=== PATIENT | male | born 1990 | race Caucasian/White ===

== ENCOUNTER 2016-05-29 22:13 | Observation (INO) ==
[2016-05-29 23:07] LABS: BASO% 0.9 % (0.0-0.8); HEMOGLOBIN 15.7 g/dL (14.0-18.0); MANUAL DIFF NEEDED? NO
[2016-05-29 23:08] LABS: BILIRUBIN URINE NEGATIVE (NEGATIVE); BLOOD URINE NEGATIVE (NEGATIVE); COLOR YELLOW; GLUCOSE URINE NEGATIVE (NEGATIVE); LEUKOCYTES URINE NEGATIVE (NEGATIVE); NITRITE URINE NEGATIVE (NEGATIVE); PH URINE 5.5; PROTEIN URINE NEGATIVE (NEGATIVE); TURBIDITY URINE CLEAR (CLEAR); URINE CULTURE NEEDED? NO; URINE MICRO REVIEW NEEDED? NO; URINE SOURCE CLEAN CATCH; UROBILINOGEN URINE NORMAL (NORMAL)
[2016-05-29 23:09] LABS: UR EPITHELIAL CELLS <10 /HPF (<10); URINE BACTERIA NEGATIVE /HPF; URINE RBC <10 /HPF (<10); URINE WBC <10 /HPF (<10)
[2016-05-29 23:14] LABS: EOS# 0.36 X1000 (0.0-0.7); EOS% 3.1 % (0.0-10.0); HEMATOCRIT 45.9 % (42.0-52.0); IMM GRAN# 0.14 X1000 (0.0-0.04); IMM GRAN% 1.2 % (0.0-0.5); LYMPH# 3.71 X1000 (1.2-3.4); LYMPH% 32.1 % (20.5-51.1); MCH 29.7 PG (27-31); MCHC 34.2 g/dL (33-37); MCV 86.9 FL (81-99); MONO# 1.07 X1000 (0.11-0.59); MONO% 9.2 % (1.7-9.3); MPV 9.8 FL (7.4-10.4); NEUT% 53.5 % (42.2-75.2); PLT 309 X1000 (130-400); RBC 5.28 XMIL (4.7-6.1)
[2016-05-29 23:15] LABS: SP GRAVITY URINE 1.022
[2016-05-29 23:28] LABS: AGAP 13; ALBUMIN 4.1 g/dL (3.5-5.0); ALKALINE PHOSPHATASE 78 U/L (32-122); AMYLASE 61 U/L (20-200); BUN 17 mg/dL (8-22); CALCIUM 8.7 mg/dL (8.8-10.2); CHLORIDE 103 mmol/L (98-107); COSMO 286; GOT 15 U/L (10-34); GPT 18 U/L (10-44); LIPASE 34 U/L (13-60); POTASSIUM 4.2 mmol/L (3.5-5.1); SODIUM 143 mmol/L (136-145); TCO2 27 mmol/L (25-35); TOTAL BILIRUBIN 0.21 mg/dL (0.20-1.00); TOTAL PROTEIN 8.2 g/dL (6.3-8.3)
[2016-05-30] MEDS ORDERED: ZOFRAN ODT PO ONE (00:45)
[2016-05-30] MEDS ORDERED: NS 1,000 ML IV SCH (05:19)
[2016-05-30] MEDS: SODIUM CHLORIDE 0.9% INJ SCH ×2 (05:55→17:01)
[2016-05-30] MEDS: PROTONIX IV SCH ×2 (05:55→17:01)
--- NOTE | 2016-05-30 06:59 | HISTORY AND PHYSICAL ---
CHIEF COMPLAINT: Abdominal pain. HISTORY OF PRESENT ILLNESS: This is a 25-year-old male with no past medical history other than cochlear implant surgery; however, over the last 2 weeks, has had abdominal pain that was sharp, worse with some movement, greatest at the periumbilical area. Did not radiate. He also had 3 spells of emesis and noted there was blood in each of the emesis, greatest today , so he came into the emergency room. He has been seen at an urgent care. Was given a Medrol Dosepak and [place]. The pain was not affected at all by meals. He did note some postural dizziness. He denied melena or hematochezia. No weight gain or weight loss. CT of the abdomen was completed in the emergency room which was a grossly normal examination. Laboratory data was also obtained which was again grossly normal. The patient will be admitted for further evaluation and treatment. PAST MEDICAL HISTORY: None. PREVIOUS SURGICAL HISTORY: Cochlear implants. FAMILY HISTORY: Diabetes mellitus and hypertension in first-degree relatives. SOCIAL HISTORY: Lives at home with family. Denies tobacco, alcohol or illicit drug use or abuse. ALLERGIES: No known drug allergies. HOME MEDICATIONS: Recently prescribed [place], Flexeril and a Medrol Dosepak; otherwise, no home medications. REVIEW OF SYSTEMS: Fourteen point review of systems conducted with the patient. Pertinent positives listed above in the HPI. All other systems were reviewed and found to be negative. PHYSICAL EXAMINATION: VITAL SIGNS: Temperature 98.1 degrees, pulse 80, respirations 18, blood pressure 123/84, oxygen saturation 99% on room air. GENERAL: Pleasant 25-year-old male lying in the ER stretcher. No acute distress. Answers all questions appropriately. HEENT: Head is atraumatic, normocephalic. Pupils equal, reactive to light. Extraocular eye movement intact. Sclerae anicteric. Conjunctivae is pink. Oral mucosa is moist. NECK: Supple. No JVD. No thyromegaly. Trachea is midline. No cervical lymphadenopathy. CARDIAC: Regular rhythm. S1-S2 appreciated. No murmurs, gallops, rubs. LUNGS: Clear to auscultation bilaterally. No rhonchi, wheezes or rales. ABDOMEN: Soft, nondistended. Diffusely tender to palpation. No rebound tenderness. Bowel sounds hypoactive all 4 quadrants. No pulsatile mass. No organomegaly. EXTREMITIES: No clubbing, cyanosis, or edema. Two plus pedal pulses bilaterally. GENITOURINARY: Patient voids, otherwise deferred. NEUROLOGICAL: Alert and oriented x3. Cranial nerves 2-12 are grossly intact. DIAGNOSTIC DATA: CT of the abdomen: No acute processes noted per radiology report; otherwise, normal examination. LABORATORY DATA: WBC 11.54, hemoglobin 15.7, hematocrit 45.9, platelet count 309,000. Sodium 143, potassium 4.2, chloride 103, carbon dioxide 27, BUN 17, creatinine 1, glucose 91. Urine unremarkable. ASSESSMENT/PLAN: 1. Questionable upper gastrointestinal bleed. The patient subjectively reported hematemesis. Will consult Gastroenterology to evaluate. Protonix 40 mg IV q.12 hours. We will also hold patient NPO. 2. Abdominal pain. The patient did not complain of pain in the emergency room. We will not order pain medicines at this time. 3. Mild leukocytosis, likely secondary to Medrol Dosepak. 4. Further recommendations per patient's clinical course. Dictated by GOYO Ochoa for Catie Conner MD cc: GOYO Ochoa MD [facility] HOSPITALChele
--- NOTE | 2016-05-30 09:36 | Diag Imaging Result Document ---
PROCEDURE NAME: CT ABD/PELVIS W/ IV CONT ONLY - 05/30/2016 CT ABDOMEN AND PELVIS WITH INTRAVENOUS CONTRAST: FINDINGS: Normal liver, spleen, pancreas, gallbladder, adrenal glands, and kidneys. There is a tiny left renal cyst. No hydronephrosis. Normal aorta. No bowel obstruction. No inflammation about the cecum. No abscess. No free air. The urinary bladder is only mildly distended. The prostate is not enlarged. There are small scattered mesenteric lymph nodes. IMPRESSION: 1. No bowel obstruction. No abscess. 2. No hydronephrosis. 3. Small scattered mesenteric nodes. These do not seem prominent enough to represent adenitis. A preliminary report was given at 2:35 a.m.
[2016-05-30] MEDS: CARAFATE LIQUID PO SCH ×4 (11:31→21:59)
--- NOTE | 2016-05-30 11:59 | PROGRESS NOTE ---
DATE: 05/30/2016 SUBJECTIVE: Patient notes he has not had any further bleeding since he has been in the hospital. Does note that he has had abdominal pain off and on for the past 2 weeks. He actually saw his primary care physician and was scheduled to have an EGD next week but after having bloody emesis yesterday and increased abdominal pain he presented to the emergency department. PHYSICAL: Temp 98 degrees, pulse 74, respiratory rate 18, BP 103/64, sat 97% on room air.General: Patient is awake, alert, oriented. Very pleasant to talk with young man who is in no current respiratory distress. He does have very poor hearing for which he has a cochlear implant. He has a friend in the room that also assists with sign language. HEENT: Normocephalic. Neck: Supple. CV: Regular rate. Chest: Relatively clear. Abdomen: Soft. He is mildly diffusely tender. No masses. No hepatosplenomegaly. Extremities: Moves all extremities. Neurologic: No focal changes. Skin: Warm and dry. No rashes. DIAGNOSTIC DATA: CBC and CMP is essentially normal. ASSESSMENT: 1. Acute gastritis with upper with an upper GI bleed. Appears to have improved. 2. Abdominal pain secondary to his acute gastritis. 3. Mild leukocytosis with no other etiology which appeared likely also the cause of his acute gastritis. PLAN: Patient apparently does not take any ibuprofen, aspirin, Aleve or other NSAIDs at home. He had been in his usual state of health as noted, until he started having abdominal pain. This continued off and on for the past 2 weeks. Certainly Medrol Dosepak could have contributed but would not have been the only cause. Currently his symptoms have improved. We will advance his diet. If his symptoms worsen certainly may need to have an EGD at that point. Further orders as needed. Hopefully home in 1-2 days. cc: Gurpreet Arnold MD
[2016-05-30] MEDS: NORCO-5 PO PRN ×2 (17:00→21:59)
[2016-05-30] MEDS: BENTYL PO PRN (17:01)
[2016-05-30] MEDS: CULTURELLE PO SCH (18:31)
[2016-05-30] MEDS ORDERED: TORADOL IV ONE (22:27)
[2016-05-31] MEDS: CARAFATE LIQUID PO SCH ×4 (03:25→19:56)
[2016-05-31 05:50] LABS: MANUAL DIFF NEEDED? NO
[2016-05-31 05:56] LABS: BASO% 0.5 % (0.0-0.8); EOS# 0.37 X1000 (0.0-0.7); EOS% 3.9 % (0.0-10.0); HEMATOCRIT 45.7 % (42.0-52.0); HEMOGLOBIN 15.7 g/dL (14.0-18.0); IMM GRAN# 0.12 X1000 (0.0-0.04); IMM GRAN% 1.3 % (0.0-0.5); LYMPH# 2.78 X1000 (1.2-3.4); LYMPH% 29.1 % (20.5-51.1); MCH 29.5 PG (27-31); MCHC 34.4 g/dL (33-37); MCV 85.9 FL (81-99); MONO# 1.06 X1000 (0.11-0.59); MONO% 11.1 % (1.7-9.3); MPV 9.8 FL (7.4-10.4); NEUT% 54.1 % (42.2-75.2); PLT 266 X1000 (130-400); RBC 5.32 XMIL (4.7-6.1)
[2016-05-31] MEDS: SODIUM CHLORIDE 0.9% INJ SCH ×2 (05:56→17:26)
[2016-05-31] MEDS: PROTONIX IV SCH ×2 (05:56→17:26)
[2016-05-31 06:18] LABS: AGAP 11; BUN 11 mg/dL (8-22); CHLORIDE 102 mmol/L (98-107); COSMO 278; POTASSIUM 4.2 mmol/L (3.5-5.1); SODIUM 140 mmol/L (136-145); TCO2 27 mmol/L (25-35)
--- NOTE | 2016-05-31 09:22 | CONSULTATION ---
DATE OF CONSULTATION: 05/30/2016 GASTROENTEROLOGY CONSULTATION: DICTATING PHYSICIANS: Dr. Sam Delacruz PRIMARY CARE DOCTOR: Rhonda Lazcano. REASON FOR CONSULTATION: Hematemesis and rectal bleeding. HISTORY OF PRESENT ILLNESS: Mr. Gomez is a 25-year-old male who has a known history of deafness status post cochlear implant surgery who was admitted on 05/29/2016 with symptoms of abdominal pain going on over the last 3 weeks, nausea, vomiting for 1 week, and noticing fresh blood and vomitus the last 3 days. The patient was seen in the urgent care for the similar symptoms and was given a Medrol Dosepak and Dunre[place]. According to him, this made his symptoms worse, and he also complains of change in bowel habits along with diarrhea, and has been noticing some fresh blood in the stools. He does notice dehydration and some postural dizziness. He had a CT scan done on admission, which showed normal liver, spleen, pancreas, gallbladder, adrenal glands, and kidneys. There is a tiny left renal cyst. No hydronephrosis. Normal aorta. There are some small scattered mesenteric lymph nodes noted. No bowel obstruction. No abscesses noted. Since being in the hospital the patient has no more vomiting. His last vomitus was yesterday and he has pictures on his phone which shows specks of bright red blood noted in the commode. He had 2 BMs today. According to him he is noticing some fresh blood in the stools which has never happened before. He still complains of stool being runny. PAST MEDICAL HISTORY: Hearing loss. PAST SURGERY HISTORY: Cochlear implants. FAMILY HISTORY: Diabetes mellitus and hypertension in first-degree relatives. SOCIAL HISTORY: He lives at home with his family. He is . His partner was present at bedside. Denies history of tobacco, alcohol, illicit drug abuse. ALLERGIES: No known drug allergies. MEDICATIONS AT HOME: Recently prescribed [place]re[place], Flexeril, Medrol Dosepak. SYSTEM REVIEW: Denies any current fevers, rigors, or chills, chest pain, shortness of breath, dyspnea. Denies any genitourinary complaints. He has a history of hearing loss and is status post cochlear implants. He denies any history of reflux disease or vomiting blood prior to this episode. He denies any history of sick contacts or recent travel. 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 MEDICATIONS IN THE HOSPITAL: Include Zofran, Protonix IV b.i.d., Carafate 1 g q.6 hours. DIET: He is currently on a full liquid diet. PHYSICAL EXAMINATION: Vital Signs: Temperature 98.7 degrees, pulse rate of 86 , respiratory rate of 17, blood pressure 115/60, O2 saturation 98% on room air. Body weight 221 pounds, 9 ounces. BMI of 32 kg/m2. General Appearance: Moderately nourished, lying in bed, in no acute distress. HEENT: No pallor. No icterus. Pupils equal, react to light. Neck: Supple. Chest: Decreased. Heart: Regular rhythm. No murmurs. Abdomen: Discomfort in the belly. There is no rebound, no guarding. Bowel sounds present. No hepatosplenomegaly. Extremities: No cyanosis, clubbing, edema. Neuro: Alert, awake, oriented. DIAGNOSTIC DATA: Labs: Hemoglobin and hematocrit is 15.7 and 45.9, white count of 11.5 and 7, platelet count of 309,000, MCV 86.9. Sodium 140, potassium 4.2, chloride 103, bicarb 27, anion gap 13, BUN of 17, creatinine of 1, glucose of 91, calcium is 8.7, total bilirubin is 0.21, AST 15, ALT is 18, alkaline phosphatase 78, total protein 8.2, albumin of 4.1, amylase 61, lipase of 34. Urinalysis is clear. Imaging in the CT scan as described in HPI. IMPRESSION: 1. Abdominal pain along with nausea, vomiting, vomiting blood. 2. Rectal bleeding. 3. Diarrhea. 4. Some prominent mesenteric lymph nodes noted on CT scan. Otherwise negative CT scan. 5. Recently prescription of steroid Medrol Dosepak and Dunreith and Flexeril for urgent care for similar symptoms. 6. Hearing loss status post cochlear implants. RECOMMENDATIONS: 1. We will schedule patient for EGD and colonoscopy on Wednesday. If the patient is feeling better over the weekend then he can be discharged and he can get that done as an outpatient. In the meanwhile, continue PPIs b.i.d. and Carafate 1 g q.6 hours. We will also check stool studies. 2. Will start on Culturelle 1 capsule once daily. 3. The patient will follow gastroesophageal reflux lifestyle changes. Avoid excessive tea, coffee, soda, tomatoes, onions, spicy foods. 4. We will continue full liquid diet and advance as tolerated. 5. Above plan of care discussed with the patient and his partner at bedside. All questions answered. cc: MD Sam Mason MD MTDD
[2016-05-31] MEDS: CULTURELLE PO SCH (09:24)
[2016-05-31] MEDS: NORCO-5 PO PRN ×2 (11:23→23:54)
[2016-05-31] MEDS ORDERED: GOLYTELY PO ONE (14:00)
--- NOTE | 2016-05-31 14:27 | PROGRESS NOTE ---
DATE: 05/31/2016 SUBJECTIVE: The patient notes that each time he attempts to eat the continues to hurt in his left lower quadrant. He does not have pain in the right lower quadrant or in the upper quadrants. Denies any fevers, chills. Denies any dysuria, frequency. Denies any current nausea. Denies any hematochezia or melena. OBJECTIVE: Vital Signs: Temperature 97, pulse 85, respiratory rate 18, BP 117/65, satting 98% on room air. General: Patient is awake, alert, oriented. He is currently in no respiratory distress. Pleasant to talk with. Speech is regular. Memory is intact. Neck: Supple. CV: Regular rate. Chest: Relatively clear. Abdomen: Soft. Tender in the left lower quadrant. Extremities: Moves all extremities. Neurologic: No changes. DIAGNOSTIC DATA: CBC and CMP essentially normal. ASSESSMENT: 1. Left lower quadrant abdominal pain. 2. Mild leukocytosis appears resolved. 3. Questionable upper gastrointestinal bleed. Appears to have resolved. PLAN: We will continue to follow along with Dr. Delacruz. Uncertain etiology of the patient's pain. The CT was essentially negative with the exception of some mild prominent mesenteric lymph nodes. I certainly feel as though he is going to have EGD and colonoscopy at this point as he was not improved, today. cc: Gurpreet Arnold MD
[2016-05-31] MEDS: ZOFRAN IV PRN ×2 (19:56→23:55)
[2016-05-31] MEDS: BENTYL PO PRN (23:33)
[2016-06-01] MEDS: CARAFATE LIQUID PO SCH ×4 (03:49→20:07)
[2016-06-01] MEDS: SODIUM CHLORIDE 0.9% INJ SCH ×2 (05:31→18:05)
[2016-06-01] MEDS: PROTONIX IV SCH ×2 (05:31→18:05)
--- NOTE | 2016-06-01 06:14 | PROGRESS NOTE ---
DATE: 05/31/2016 ATTENDING PHYSICIAN: Dr. Arnold. SUBJECTIVE: The patient is currently resting in bed. He complains of abdominal pain after eating and the pain is localized in the periumbilical region and left lower quadrant and left upper quadrant. He also complains of intermittent blood in the stools. He had 2 BMs today. He denies any fevers, rigors, or chills. He was able to eat 100% of his meals a day. OBJECTIVE: Vital signs: Temperature 97.8 degrees, pulse rate of 69, respiratory rate of 16, blood pressure 112/67, saturating 98% on room air. General appearance: Moderately built, moderately nourished, lying in bed, in no acute. HEENT: No pallor. No icterus. Pupils equal, react to light. Neck: Supple. Abdomen: Soft. Discomfort in the periumbilical region, left upper quadrant, and left lower quadrant. No rebound. No guarding. Extremities: No cyanosis, clubbing, and edema. Neurologic: He is alert, awake, oriented. He has a history of bilateral deafness and has a history of cochlear implants. LABS: Hemoglobin and hematocrit are 15.7 and 45.7, white count of 9.5, platelet count of 266,000, MCV of 85.9. Sodium 140, potassium 4.2, chloride 102, bicarb 27, anion gap of 11, BUN of 11, creatinine 1.1, glucose of 87, calcium is 9. Liver enzymes were normal yesterday. Amylase and lipase were also normal at 61 and 34 yesterday. Urinalysis unremarkable. IMPRESSION AND PLAN: 1. Abdominal pain in the periumbilical region and left upper quadrant and left lower quadrant with nausea, vomiting, vomiting blood. Although his hematocrit is stable, suspect erosive gastritis vs viral syndrome. We will schedule him for an EGD and colonoscopy tomorrow. 2. Rectal bleeding, intermittent. Maybe anorectal pathology. Will evaluate with a colonoscopy as described above. 3. Some prominent mesenteric lymph nodes noted on the CT scan but otherwise negative CT scan. It could be secondary to viral gastroenteritis. 4. History of hearing loss status post cochlear implants. Per the primary care team. 5. We will continue patient on PPIs, GI prophylaxis, and recent history of hematemesis. The patient will continue on gastroesophageal reflux lifestyle changes. Will keep him on Culturelle 1 capsule p.o. b.i.d. for 6 weeks and on discharge he may need to be on PPIs once daily for 8-12 weeks. The above plan of care was discussed with the patient and all questions were answered. cc: MD Gurpreet Rodriguez MD Kimberly M. Young MTDD
[2016-06-01] MEDS: CULTURELLE PO SCH (10:59)
[2016-06-01] MEDS ORDERED: DIPRIVAN 1% ONE (11:08)
[2016-06-01] MEDS ORDERED: EXTENSION SET 32 IN 4522 ONE (11:55)
[2016-06-01] MEDS ORDERED: NS 1,000 ML ONE (11:55)
[2016-06-01] MEDS ORDERED: XYLOCAINE-MPF 2% ONE (11:55)
[2016-06-01] MEDS ORDERED: ANESTHESIA PB SET 88 IN 5742 ONE (11:55)
[2016-06-01] MEDS: MIRALAX PO SCH ×2 (15:35→20:07)
--- NOTE | 2016-06-01 16:49 | PROGRESS NOTE ---
DATE: 06/01/2016 SUBJECTIVE: The patient is resting comfortably in bed. He completed the colonoscopy prep this morning. OBJECTIVE: Vital Signs: Temperature 98.5 degrees, blood pressure 130/78, heart rate 98, respirations 16, and O2 saturations 97% on room air. General: This is a young male, lying in bed, in no acute distress. HEENT: Head, normocephalic and atraumatic. Heart: S1, S2. Normal. Regular rate and rhythm. Lungs: Clear to auscultation bilaterally. No wheezes, no rales, no rhonchi. Abdomen: Positive bowel sounds. Soft, nontender, nondistended. Extremities: No edema. No cyanosis. No calf tenderness. Neurologic: The patient is alert and oriented x3. LABORATORY DATA: None. ASSESSMENT AND PLAN: 1. Abdominal pain. The patient is scheduled for an esophagogastroduodenoscopy and colonoscopy today. We will follow the results. 2. Rectal bleeding. Again, the patient is scheduled for a colonoscopy today. 3. Hearing loss, status post cochlear implants, aware. 4. Gastrointestinal prophylaxis. Continue on intravenous Protonix. cc: Ambreen Wild MD
--- NOTE | 2016-06-01 20:57 | OPERATIVE NOTE ---
PROCEDURE DATE: 06/01/2016 REQUESTING PHYSICIAN: Marcus Saldaña MD PROCEDURE: 1. Esophagogastroduodenoscopy with gastric biopsy. 2. Colonoscopy. PREOPERATIVE DIAGNOSES: 1. Abdominal pain periumbilical region, left upper quadrant, left lower quadrant going on for the last 3 weeks. 2. Nausea, vomiting, and vomiting blood once at home. 3. Normal CBC. 4. Mild rectal bleeding. POSTOPERATIVE DIAGNOSES: 1. Mild esophagitis distal esophagus LA grade 1. 2. Z-line was at 40 cm. 3. Evidence of erosive gastritis of the antrum status post biopsy. 4. Normal fundus, cardia, incisura. 5. Mild duodenitis in the duodenal bulb. 6. Normal 2nd portion duodenum. 7. Stool throughout the colon, poor prep. 8. High impaction with solid stool impacted in the descending colon. The scope was able to go around that area and able to lavage the colon. Evidence of minor internal hemorrhoids. 9. No evidence of active bleeding fresh or old blood in the entire colonoscopy. Brown stool throughout the colon. ESTIMATED BLOOD LOSS: Minimal. COMPLICATIONS: None. ANESTHESIA: Monitored anesthesia care per Anesthesiologist. SPECIMENS: Random gastric biopsy. DESCRIPTION OF PROCEDURE: After informed consent, the patient and his family explained the risks, benefits, indications, alternatives to procedure, the patient was prepared for an EGD and colonoscopy. The patient was brought to the OR. He was turned in the left position, a bite block was placed in the patient's mouth after adequate monitored anesthesia care. The upper scope was introduced over the oral vestibule, all the way to the second portion of duodenum. The esophagus showed evidence of erythema, erosions in the distal esophagus, suggesting reflux esophagitis. The Z-line was at 40 cm. The scope was advanced in the stomach evidence of mild erosions in the antrum suggesting antral gastritis. This was biopsied randomly in the stomach, rule out H. pylori. Retroflexion revealed normal fundus, cardia, incisura. The duodenal bulb showed evidence of mild erythema, erosions suggesting erosive duodenitis. The 2nd portion of duodenum appeared normal. The air was aspirated as the scope withdrawn. The patient was then turned around. Rectal exam was performed, which revealed normal rectal tone. No masses were felt. No blood on the examining finger. The colonoscope was introduced through the anal verge, traversed all the way to the cecum. There was evidence of normal colon mucosa in the rectosigmoid area. In the descending colon, we encountered a high impaction with stool impacted in that area. We were able to wriggle the scope around the solid stool area all the way into the cecum. Cecum was identified with the IC valve. The entire colon from the cecum all the way to the descending colon was full of solid stool and thick liquid stool. So we lavaged the colon. The lesions in this area could be missed because of the poor prep. Retroflexion in the rectum revealed internal hemorrhoids. I did not visualize any evidence fresh or old blood in entire colonoscopy. The air was aspirated as the scope withdrawn. The patient tolerated the procedure and is currently monitored in the OR in stable condition. I discussed the findings with the patient's family and all questions were answered. RECOMMENDATIONS: 1. The patient will be on Prilosec once daily for the next 3 months and wean down to Zantac 150 mg p.o. b.i.d. 2. Patient will be on gastroesophageal reflux life changes. Avoid excessive tea , coffee, soda, tomatoes, onions, spicy foods. 3. Patient will be on MiraLAX 34 g p.o. b.i.d. and hold for more than 3 bowel movements in 24 hours. 4. We will start patient on full liquid diet today and advance as tolerated. I believe the patient's symptoms are all secondary due to impaction, so he will benefit from a high fiber diet. The patient will call my office in 2 weeks of discharge to review the gastric biopsy and he will need a repeat colonoscopy with 2 day prep if his symptoms persist. The above findings discussed with the patient and family and all questions were answered. cc: MD Marcus Rodriguez MD [facility]
[2016-06-02] MEDS: CARAFATE LIQUID PO SCH ×2 (02:23→10:38)
[2016-06-02] MEDS: PROTONIX IV SCH (05:08)
[2016-06-02] MEDS: SODIUM CHLORIDE 0.9% INJ SCH (05:08)
[2016-06-02 05:41] LABS: HEMATOCRIT 46.3 % (42.0-52.0); MCH 29.6 PG (27-31); MCHC 34.6 g/dL (33-37); MCV 85.7 FL (81-99); MPV 9.7 FL (7.4-10.4); RBC 5.4 XMIL (4.7-6.1)
[2016-06-02 05:53] LABS: AGAP 11; BUN 12 mg/dL (8-22); CALCIUM 9.1 mg/dL (8.8-10.2); CHLORIDE 102 mmol/L (98-107); COSMO 281; POTASSIUM 4.3 mmol/L (3.5-5.1); SODIUM 141 mmol/L (136-145); TCO2 28 mmol/L (25-35)
[2016-06-02 05:55] VITALS: BP 116/75
[2016-06-02] MEDS: MIRALAX PO SCH (10:38)
[2016-06-02] MEDS: CULTURELLE PO SCH (10:38)
--- NOTE | 2016-06-10 15:01 | PROVIDER DOCUMENTATION ---
This chart was entered by Juan Jose Wagner Scribe, acting as scribe for Yaya Live MD. HPI-Abdominal Pain/GI Problem - General Chief Complaint: Abdominal Pain Stated Complaint: VOMITING BLOOD, BLEEDING FROM RECTUM Time Seen by Provider: 05/30/16 00:37 Source: patient, family Allergies/Adverse Reactions: Patient Allergies Allergy/AdvReac Type Severity Reaction Status Date / Time No Known Allergies Allergy Verified 05/29/16 23:46 Home Medications: Home Medication List Medication Instructions Recorded Confirmed Last Taken Type Cyclobenzaprine HCl 10 mg PO TID 05/29/16 05/29/16 Unknown History Hydrocodone/Acetaminophen 1 tab PO TID PRN 05/29/16 05/29/16 Unknown History [Hydrocodon-Acetaminophen 5-325] Lactobacillus Rhamnosus GG 1 each PO DAILY #30 capsule 06/02/16 Unknown Rx [Culturelle] Omeprazole [Prilosec] 40 mg PO DAILY #30 capsule. 06/02/16 Unknown Rx Polyethylene Glycol 3350 [Miralax] 17 gm PO BID #1 powd.pack 06/02/16 Unknown Rx - History of Present Illness-ABD Nature of Presenting Problems: Pt is a 25 yom who presents to ER with CC of hematochezia and hematemesis. Pt reports that he has had N/V/D x2 weeks, but he started to notice blood in his stool and emesis after getting home from work today. Pt also reports dysuria, F/ chills. Abdominal Pain Onset Location: reports: RLQ Pain Radiation: reports: no radiation Quality of Pain: reports: aching, cramping Severity in ED: reports: moderate Onset/Duration: reports: just prior to arrival Timing: reports: still present Associated Symptoms: reports: diarrhea (hematochezia), fever/chills, genitourinary problems (dysuria), nausea, vomiting (hematemesis). denies: anxiety, arm pain, back/neck pain, chest pain, constipation, cough, diaphoresis , dizziness, EENT symptoms, fatigue, headaches, heartburn, joint pain, loss of appetite, malaise, muscle aches, sinus congestion/drainage, rash, seizure, shortness of breath, sensory/motor loss, pain with inspiration, swelling/mass in abdomen, syncope, weakness, trouble walking Last BM: this evening Dark Stools Present?: reports: bright red blood Rectal Bleeding: reports: bleeding without stool, blood mixed with stool Rectal Pain: reports: none Emesis Description: reports: red blood Bruising or Bleeding Gums?: No Similar Symptoms Previously?: No Recently seen or treated by another doctor?: No Review of Systems - Adult - REVIEW OF SYSTEMS - ADULT Constitutional: reports: chills, fever. denies: fatique, night sweats, weight gain, weight loss Eyes: reports: no symptoms reported Ears, Nose, Mouth & Throat: reports: no symptoms reported Cardiovascular: reports: no symptoms reported Respiratory: reports: no symptoms reported Gastrointestinal: reports: abdominal pain, hematemesis, diarrhea, nausea, rectal bleeding, vomiting. denies: constipation, difficulty swallowing, frequent heartburn, poor appetite Genitourinary: reports: dysuria. denies: discharge, frequency, flank pain, frequent UTI's, hematuria, hesitency, incontinence, urinary retention, urgency Musculoskeletal: reports: no symptoms reported Integumentary: reports: no symptoms reported Neurological: reports: no symptoms reported Psychiatric: reports: no symptoms reported Endocrine: reports: no symptoms reported Hematologic/Lymphatic: reports: no symptoms reported Allergic/Immunologic: reports: no symptoms reported All Other Systems: Reviewed and Negative Past History - Adult - PAST MEDICAL HISTORY-ADULT Review of Records: reports: Nursing Assessment Review, Medications Reviewed - IMMUNIZATION STATUS Childhood Immunizations: See Nurse Assessment Flu Vaccine: See Nurse Assessment Physical Exam-General - PHYSICAL EXAM-ADULT Initial Vital Signs Reviewed: Yes - CONSTITUTIONAL General Appearance: appears well, alert, mild distress. negative: no apparent distress - HEAD, EARS, NOSE, MOUTH & THROAT HENMT: normocephalic/atraumatic, moist mucous membranes, normal ENT inspection, TMs normal, pharynx normal. negative: pharyngeal erythema, tonsillar exudate, TM abnormal, TM obscurred by cerumen - NECK Neck: non-tender, full range of motion, supple, normal inspection. negative: C- spine tenderness, limited range of motion, lymphadenopathy - RESPIRATORY Respiratory: chest non-tender, lungs clear, normal breath sounds, no pleuratic chest pain, no respiratory distress, no accessory muscle use. negative: respiratory distress, decreased breath sounds, accessory muscle use, crackles, rales, rhonchi, stridor, wheezing - CARDIOVASCULAR Cardiovascular: normal peripheral pulses, regular rate, rhythm. negative: bradycardia, tachycardia, irregularly irregular - GASTROINTESTINAL (ABDOMEN) Abdominal Exam: normal bowel sounds, soft, tenderness (RLQ). negative: non tender, distended, guarding - MUSCULOSKELETAL Extremity: normal range of motion, non-tender, normal gait, normal inspection, no pedal edema, no calf tenderness, normal capillary refill. negative: deformity, erythema, inflammation, joint effusion, swelling, tenderness - SKIN Integumentary: normal color, normal turgor, warm/dry. negative: abrasion(s), diaphoresis, ecchymosis, erythema, laceration(s), swelling, tenderness, warm - NEUROLOGIC Neurologic: pmo manager II-XII nml as tested, grossly normal, no motor/sensory deficits . negative: facial droop, focal weakness, motor weakness, sensory deficit - PSYCHIATRIC Psych/Mental Status: normal mood/affect, normal thought content, normal thought process, oriented x 3 Progress - PLAN OF CARE/RESULTS Progress/Plan/Lab Results: Vital Signs - 8 hr 05/29/16 22:46 Temperature 98.1 F Pulse Rate 95 H Respiratory Rate 20 Blood Pressure 129/85 O2 Sat by Pulse Oximetry 99 Laboratory Results - last 24 hr 05/29/16 05/29/16 05/29/16 22:50 22:50 22:50 WBC 11.57 H RBC 5.28 Hgb 15.7 Hct 45.9 MCV 86.9 MCH 29.7 MCHC 34.2 RDW Std Deviation 12.7 Plt Count 309 MPV 9.8 Immature Gran % (Auto) 1.2 H Neut % (Auto) 53.5 Lymph % (Auto) 32.1 [place] % (Auto) 9.2 Eos % (Auto) 3.1 Baso % (Auto) 0.9 H Immature Gran # (Auto) 0.14 H Neut # (Auto) 6.19 Lymph # (Auto) 3.71 H [place] # (Auto) 1.07 H Eos # (Auto) 0.36 Baso # (Auto) 0.10 Sodium 143 Potassium 4.2 Chloride 103 Carbon Dioxide 27 Anion Gap 13 BUN 17 Creatinine 1.0 Estimated GFR/1.73 m2 > 60 BUN/Creatinine Ratio 17 Glucose 91 Calculated Osmolality 286 Calcium 8.7 L Total Bilirubin 0.21 AST 15 ALT 18 Alkaline Phosphatase 78 Total Protein 8.2 Albumin 4.1 Globulin 4.1 Albumin/Globulin Ratio 1.0 Amylase 61 Lipase 34 Urine Source CLEAN CATCH Urine Color YELLOW Urine Turbidity CLEAR Urine pH 5.5 Ur Specific [place] 1.022 Urine Protein NEGATIVE Ur Glucose (Stick) NEGATIVE Ur Ketones (Stick) NEGATIVE Urine Blood NEGATIVE Urine Nitrite NEGATIVE Urine Bilirubin NEGATIVE Urobilinogen Dipstick NORMAL Urine Leukocytes NEGATIVE Urine WBC (Auto) <10 Urine RBC (Auto) <10 U Epithel Cells (Auto) <10 Urine Bacteria (Auto) NEGATIVE Orders Category Date Time Status Saline Loc DIRECTED Care 05/29/16 22:51 Active NPO Diet 05/29/16 22:51 Active AMYLASE [CHEM] Stat Lab 05/29/16 22:50 Completed CBC WITH ELECTRONIC DIFF [HEME] Stat Lab 05/29/16 22:50 Completed COMPREHENSIVE METABOLIC PANEL [CHEM] Stat Lab 05/29/16 22:50 Completed LIPASE [CHEM] Stat Lab 05/29/16 22:50 Completed URINALYSIS W/POSS RFLX CULT [URINALYSIS] Stat Lab 05/29/16 22:50 Completed Ondansetron Odt [Zofran Odt] Med 05/30/16 00:45 Discontinued 4 mg PO NOW ONE Result Diagrams: 06/02/16 05:10 06/02/16 05:10 - CT/MRI 1 CT Study: Abdomen, Pelvis Impression: See EMR Report CT Results: Normal CT Departure - Departure Time of Disposition Decision: 04:35 DIAGNOSIS: GI bleed Disposition: ADMITTED INPATIENT 09 Certified Medical Emergency: Emergent Condition: Stable - Critical Care Note This patient required my direct personal management.: No This chart was documented by the indicated scribe, (Juan Jose Wagner Scribe) and accurately reflects the services I performed and decisions made by me, Yaya Live MD, as attested by the provider's signature.
--- NOTE | 2016-06-13 18:27 | DISCHARGE SUMMARY ---
ADMISSION DATE: 05/29/2016 DISCHARGE DATE: 06/02/2016 FINAL DISCHARGE DIAGNOSES: 1. Upper gastrointestinal bleed. 2. Esophagitis. 3. Erosive gastritis. 4. Duodenitis. 5. Internal hemorrhoids. CONSULTATIONS REQUESTED DURING THIS HOSPITAL STAY: GI consultation with Dr. Delacruz. PROCEDURES PERFORMED DURING THIS HOSPITAL STAY: 1. EGD performed on 06/01/2016 that revealed esophagitis, gastritis and duodenitis. 2. Colonoscopy which revealed minor internal hemorrhoids and stool impaction. HOSPITAL COURSE: Mr. Gomez is a 25-year-old male who presented to the ER with abdominal pain. While in the ER, a CT of the abdomen and pelvis was done that was noted to be unremarkable. GI was consulted for further recommendations. The patient underwent an EGD with colonoscopy on 06/01/2016 that revealed esophagitis, duodenitis and gastritis. The patient was also noted to have internal hemorrhoids. The patient continued to improve clinically and was cleared for discharge on 06/02/2016. DISCHARGE MEDICATIONS: 1. MiraLAX 17 g p.o. twice a day. 2. Prilosec 40 mg p.o. daily. 3. Lactobacillus 1 tablet oral daily. 4. [place] 5/325 one tab oral 3 times a day p.r.n. for pain. 5. Flexeril 10 mg p.o. 3 times a day. DISCHARGE DIET: [place] diet. ACTIVITY: As tolerated. FOLLOWUP INSTRUCTIONS: The patient will need to follow up with Dr. Delacruz in 1 month. cc: Ambreen Wild MD
== END 2016-06-02 10:48 | disposition home or self-care (01) ==
LOC: ED 22:13 → SUATTDRO 22:14 → INTOOBSV 22:14 → 4N 05-30 05:09
PROVIDERS: ATTEND Internal Medicine